=== PATIENT | female | born 1990 | race Caucasian/White ===

== ENCOUNTER 2016-09-06 13:06 | Emergency (ER) | payer MEDICAID, OTHER ==
[2016-09-06 13:13] VITALS: BP 129/95
--- NOTE | 2016-09-06 13:34 | ER Document Report ---
HPI - HPI Patient complains to provider of: ear pain Pain Level: 3 Context: 26 yo female c/o bilat ear pain x 5 days Associated Symptoms: None Exacerbated by: Denies Relieved by: Denies Similar symptoms previously: Yes Recently seen / treated by doctor: No - ROS Systems Reviewed and Negative: Yes All other systems reviewed and negative - DERM Skin Color: Normal Past Medical History - General Information source: Patient - Social History Smoking Status: Never Smoker Frequency of alcohol use: None Drug Abuse: None Lives with: Family Family History: Reviewed & Not Pertinent - Medical History Medical History: Negative Renal/ Medical History: Denies: Hx Peritoneal Dialysis Vertical Provider Document - CONSTITUTIONAL Agree With Documented VS: Yes Exam Limitations: No Limitations - INFECTION CONTROL TRAVEL OUTSIDE OF THE [place] IN LAST 30 DAYS: No - HEENT HEENT: Atraumatic Notes: right EAC edematous with thick white exudate, TM dull and retracted. mild preauricular tenderness. mastoid nontender left EAC erythematous, no edema or exudate. TM dull. no preauricular or postauricular tenderness. mastoid nontender - NECK Neck: Normal Inspection, Supple - RESPIRATORY Respiratory: Breath Sounds Normal, No Respiratory Distress O2 Sat by Pulse Oximetry: 100 - CARDIOVASCULAR Cardiovascular: Regular Rate, Regular Rhythm - BACK Back: Normal Inspection - MUSCULOSKELETAL/EXTREMETIES Musculoskeletal/Extremeties: MAEW, FROM, Non-Tender - NEURO Level of Consciousness: Awake, Alert, Appropriate Course - Vital Signs Vital signs: Temp Pulse Resp BP Pulse Ox 98.6 F 84 20 129/95 H 100 09/06/16 13:12 09/06/16 13:12 09/06/16 13:12 09/06/16 13:12 09/06/16 13:12 Discharge - Discharge Clinical Impression: Otitis externa Qualifiers: Otitis externa type: unspecified type Chronicity: acute Laterality: bilateral Qualified Code(s): H60.503 - Unspecified acute noninfective otitis externa, bilateral Condition: Stable Instructions: Use of Ear Drops ([facility]), Otitis Externa ([facility]), Antibiotic Therapy ([facility]) Additional Instructions: Take medications as prescribed Keep ears completely dry x 7 days Follow up with primary care if symptoms persist or worsen Prescriptions: Amoxicillin 500 mg PO TID #21 tablet Ciprofloxacin HCl/Dexameth [Ciprodex Otic Suspension Drops] 3 drop BTH_EAR BID # 1 bottle Gentamicin Sulfate 3 drop BTH_EAR Q6H #1 bottle Forms: Elevated Blood Pressure
== END 2016-09-06 14:24 | disposition home or self-care (01) ==
LOC: ER 13:06
DX: H60.503 Unspecified acute noninfective otitis externa, bilateral (principal); H92.03 Otalgia, bilateral
CPT/HCPCS: 99282

== ENCOUNTER → 2019-10-01 | Outpatient (CLI) | payer SELFPAY ==
--- NOTE | 2019-10-01 13:39 | RADIOLOGY REPORT (SQ) ---
EXAM DESCRIPTION: U/S [id number] TRNABD 1GES W/ODOP IMAGES COMPLETED DATE/TIME: 10/01/2019 1:25 pm REASON FOR STUDY: Z34.01 ENCNTR FOR SUPRVSN OF NORMAL FIRST PREG, FIRST TRIMESTER Z34.01 ENCNTR FOR SUPRVSN OF NORMAL FIRST PREG, FIRST TRIMES COMPARISON: None. TECHNIQUE: Transabdominal static and realtime grayscale images acquired of the pelvis. Additional se lected spectral and color Doppler images recorded. All images stored on PACs. bHCG: Unknown CLINICAL DATES: LMP 07/31/2019 8 weeks 6 days LIMITATIONS: None. FINDINGS: FETUS: Single Living intrauterine . ULTRASOUND EGA: 9 weeks 3 days ULTRASOUND MEMO: 05/02/2020 EFW: Not applicable less than 20 weeks. CRL: 2.7 cm FHR: 180 beats per minute. SURVEY: Too early to assess. AMNIOTIC FLUID: Adequate amount. PLACENTA: Not yet developed due to early gestation. SUBCHORIONIC BLEED: No SIZE OF BLEED: Not applicable. UTERUS: No masses. No anomalies. CERVICAL LENGTH: 3.1 cm. Closed. RIGHT ADNEXA: Normal ovary with normal vascular flow. 4.4 x 2.3 x 2.3 cm. No adnexal free fluid. No adnexal masses. LEFT ADNEXA: Normal ovary with 1.7 cm corpus luteum normal vascular flow. 3.1 x 2.5 x 2.2 cm. No adnexal free fluid. No adnexal masses. FREE FLUID: None. OTHER: No other significant finding. IMPRESSION: LIVING INTRAUTERINE . EGA 9 weeks 3 days Trimester of : First trimester - 0 to 13 weeks. TECHNICAL DOCUMENTATION: JOB ID: [id number] [employer]- All Rights Reserved rev Reading location - IP/workstation name: [email or web address]
== END ==
LOC: RAD 13:00
PROVIDERS: ATTEND Nurse Practitioner Family
DX: Z34.01 Encounter for supervision of normal first pregnancy, first trimester (principal)
CPT/HCPCS: 76801